=== PATIENT | female | born 1945 | race Caucasian/White ===

== ENCOUNTER 2018-07-08 07:26 | Day surgery (SDC) | payer MEDICARE, BC ==
--- NOTE | 2018-06-05 15:55 | HP ---
PREOPERATIVE HISTORY AND PHYSICAL: DATE OF ADMISSION: 06/24/2018. CHIEF COMPLAINT: Numbness and tingling in the left hand. HISTORY OF PRESENT ILLNESS: Vani is a 73-year-old woman who complains of bilateral numbness and tingling in her hands for 7 years on and off. More recently, it has become increasingly bothersome and is worse on the left hand than the right. She has had difficulty doing activities such as gardening and knitting. She has had an increase in her symptoms recently after doing a lot of loading of firewood for the winter. She has had cortisone injections into her carpal tunnels, which were helpful but now have worn off and she presents now for left carpal tunnel release. PAST MEDICAL HISTORY: 1. Sleep apnea. 2. Asthma. 3. Hypercholesterolemia. 4. Mitral valve disorder for which she has recently seen her bread wrapper operator. 5. Primary cardiomyopathy. PAST SURGICAL HISTORY: 1. Cholecystectomy. 2. Radiofrequency ablation for SVT. 3. Laminectomy. 4. Tubal ligation. 5. Tonsillectomy. MEDICATIONS: 1. Entresto 24/26 mg 1 p.o. b.i.d. 2. Magnesium 300 mg OTC p.o. daily. 3. Levothyroxine sodium 100 mcg p.o. daily. 4. Ezetimibe 10 mg p.o. daily. 5. Modafinil 100 mg p.o. q.a.m. p.r.n. 6. Calcium 600 mg p.o. daily. 7. Vitamin D 2 drops daily. 8. Carvedilol 6.25 mg half a tablet p.o. b.i.d. 9. Alvesco 160 mcg per ACT 2 inhalations twice a day. 10. CPAP for use while sleeping. 11. ProAir HFA 108 mcg 2 puffs q.4 hours p.r.n. The patient rarely uses this. 12. Biotin 5 mg p.o. daily. ALLERGIES: To SULFA, LIPITOR, SEASONAL ALLERGIES, CIPRO, and AUGMENTIN. FAMILY HISTORY: Noncontributory. SOCIAL HISTORY: She lives with her . 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 The patient denies tobacco use. Rarely consumes alcohol. Does not use recreational drugs. REVIEW OF SYSTEMS: Positive for cough, history of fracture as a child, slight weight loss and seasonal allergies. Otherwise, negative for cephalic, cardiovascular, respiratory, gastrointestinal, genitourinary, other musculoskeletal, skin, neurologic, endocrine, and hematologic symptoms. PHYSICAL EXAMINATION GENERAL: She is a healthy-appearing very pleasant female, in minimal distress, at rest. HEENT: Unremarkable. NECK: She has good range of motion of her neck without pain. No masses are palpated. LUNGS: Clear to auscultation. Good inspiratory effort. No wheezing. CARDIAC: Regular rate and rhythm without murmur. PERIPHERAL VASCULAR: She has palpable pulses and no peripheral edema. NEUROLOGICAL: She is alert and oriented without focal deficit. EXTREMITIES: She has decreased sensation in the median nerve distribution of her left hand. Some mild thenar wasting and positive median nerve compression test. IMPRESSION: Left carpal tunnel syndrome. PLAN: Left carpal tunnel release. Surgical procedure, risks and benefits were explained to the patient today and she agrees to proceed. We will see her back in followup for recheck approximately 10 days postop. [id number]/[facility] #: [id number] KINDRA
[~2018-07-08 07:26] MED LIST: Buffered Lidocaine 0.9% SYRIN* 5 ML/SYR SYRINGE INTRADERM ONE; Famotidine IV* 10 MG/ML 2 ML (20 mg) IV ONE; Lidocaine 1% INJ* 10 MG/ML 30 ML SDV ONE
[2018-07-08] MEDS ORDERED: Midazolam* 1 MG/ML 5 ML VIAL (5 MG) ONE (08:55)
[2018-07-08] MEDS ORDERED: fentaNYL* 50 MCG/ML 2 ML VIAL (100 MCG VIAL) ONE (08:55)
[2018-07-08] MEDS ORDERED: Ondansetron INJ* 2 MG/ML VIAL ONE (09:30)
[2018-07-08] MEDS ORDERED: Ketorolac INJ* 30 MG/ML 1 ML VIAL ONE (09:30)
[2018-07-08] MEDS ORDERED: Lidocaine 2% PF * 5 ML VIAL ONE (09:30)
[2018-07-08] MEDS ORDERED: Propofol* 10 MG/ML 20 ML BTL ONE (09:30)
[2018-07-08 09:59] VITALS: BP 106/59
[2018-07-08] MEDS ORDERED: Acetaminophen TAB* 325 MG PO PRN (10:01)
--- NOTE | 2018-07-09 08:37 | OP ---
DATE OF OPERATION: 07/08/[address] [facility] DATE OF : 47. SURGEON: Lamar Calderón MD. FORECLOSURE SPECIALIST: FRANCIS Matthews. ANESTHESIA: Local MAC. PRE-OP DIAGNOSIS: Left carpal tunnel syndrome. POST-OP DIAGNOSIS: Left carpal tunnel syndrome. OPERATIVE PROCEDURE: Left carpal tunnel release. ESTIMATED BLOOD LOSS: Zero. TOURNIQUET TIME: About 10 minutes. INDICATION FOR PROCEDURE: Vani is a 73-year-old woman with numbness and tingling in the median nerve distribution of her left hand. She presents for left carpal tunnel release. DESCRIPTION OF PROCEDURE: The patient was brought to the operating room and was given a sedation anesthetic and a local infiltration of 10 cc of 1% plain lidocaine in the palm of her left hand. The skin of her left hand and forearm was prepped and draped in the usual sterile fashion. The hand and forearm were exsanguinated and the tourniquet elevated to 250 mmHg. A longitudinal incision was made in the palm in line with the ring finger. We dissected through the subcutaneous tissue down to the transverse carpal ligament. The ligament was divided sharply with a knife and then more proximally with the scissors. The nerve was dissected free from the surrounding tissue and there was an area of moderate compression in the mid portion of the ligament. The wound was irrigated and skin edges were reapproximated with 4-0 nylon suture. The wound was dressed with Xeroform, 4x4, Webril, and an Fracisco wrap. The patient tolerated the procedure well and was brought to the recovery room in good condition. [id number]/[facility] #: [id number] [facility]
== END 2018-07-08 10:21 | disposition home or self-care (01) ==
LOC: OREAST 07:26
PROVIDERS: ATTEND Orthopaedic Surgery
DX: G56.02 Carpal tunnel syndrome, left upper limb (principal); I44.7 Left bundle-branch block, unspecified; G47.33 Obstructive sleep apnea (adult) (pediatric); E78.5 Hyperlipidemia, unspecified; I42.9 Cardiomyopathy, unspecified; I34.0 Nonrheumatic mitral (valve) insufficiency
CPT/HCPCS: J1885; J2250; J2405; J2704; J3010

== ENCOUNTER 2018-08-29 09:26 | Day surgery (SDC) | payer MEDICARE, BC ==
--- NOTE | 2018-08-18 10:46 | HP ---
CC: Dr. Calderón PREOPERATIVE HISTORY AND PHYSICAL: DATE OF ADMISSION: CHIEF COMPLAINT: Right hand numbness and tingling. HISTORY OF PRESENT ILLNESS: Vani is a 73-year-old female who complains of numbness and tingling in her right hand. She recently had a left carpal tunnel release with very good result and presents now for the same on the right. PAST MEDICAL HISTORY: Sleep apnea, asthma, hypercholesterolemia, mitral valve disorder, treated by h layout former and primary cardiomyopathy. PAST SURGICAL HISTORY: Cholecystectomy, radiofrequency ablation for SVT, laminectomy, tubal ligation , tonsillectomy, and left carpal tunnel release. MEDICATIONS: 1. Entresto 24/26 mg 1 p.o. b.i.d. 2. Magnesium 300 mg OTC p.o. daily. 3. Levothyroxine sodium 100 mcg p.o. daily. 4. Ezetimibe 10 mg p.o. daily. 5. Modafinil 100 mg p.o. q.a.m. p.r.n. 6. Calcium 600 mg p.o. daily. 7. Vitamin D 2 drops daily. 8. Carvedilol 6.25 mg half a tablet p.o. b.i.d. 9. Alvesco 160 mcg per ACT 2 inhalations twice a day. 10. CPAP for use while sleeping. 11. ProAir HFA 108 mcg 2 puffs q.4 hours p.r.n. The patient rarely uses this. 12. Biotin 5 mg p.o. daily. ALLERGIES: SULFA, LIPITOR, SEASONAL ALLERGIES, CIPRO and AUGMENTIN. FAMILY HISTORY: Noncontributory. SOCIAL HISTORY: She lives with her . 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 She denies tobacco use. Rarely consumes alcohol and does not use recreational drugs. REVIEW OF SYSTEMS: Positive for cough, history of fracture as a child, slight weight loss, seasonal allergies. Otherwise, negative for cephalic, cardiovascular, respiratory, gastrointestinal, genitour inary, other musculoskeletal, skin, neurologic, endocrine and hematologic symptoms. PHYSICAL EXAMINATION GENERAL: She is a healthy-appearing very pleasant female in minimal distress at rest. HEENT: Unremarkable. NECK: She has good range of motion of her neck without pain. No masses are palpated. LUNGS: Clear to auscultation. Good inspiratory effort. No wheezing. CARDIAC: Regular rate and rhythm without murmur. PERIPHERAL VASCULAR: She has palpable pulses and no peripheral edema. NEUROLOGICAL: She is alert and oriented without focal deficit. EXTREMITIES: She has decreased sensation in the median nerve distribution of the right hand. She graves s mild thenar wasting and positive median nerve compression test. She can fully flex and extend her fingers and her wrist motion is good. IMPRESSION: Right carpal tunnel syndrome. PLAN/RECOMMENDATIONS: The plan is for right carpal tunnel release. The surgical procedure, risks an d benefits were explained to the patient and she agreed to proceed. I will see her back in followup approximately 10 days postop. [id number]/[facility] #: [id number]
[~2018-08-29 09:26] MED LIST changes: -Buffered Lidocaine 0.9% SYRIN* 5 ML/SYR SYRINGE INTRADERM ONE; +Buffered Lidocaine 1% SYRIN* 1 ML/SYRINGE INTRADERM ONE; -Famotidine IV* 10 MG/ML 2 ML (20 mg) IV ONE; +Lactated Ringers 1000 ML Bag* 1,000 ML IV SCH; -Lidocaine 1% INJ* 10 MG/ML 30 ML SDV ONE
[2018-08-29] MEDS ORDERED: Lidocaine 1% INJ* 10 MG/ML 30 ML SDV ONE (10:07)
[2018-08-29] MEDS ORDERED: Propofol* 10 MG/ML 20 ML BTL ONE (10:16)
[2018-08-29] MEDS ORDERED: fentaNYL* 50 MCG/ML 2 ML VIAL (100 MCG VIAL) ONE (10:16)
[2018-08-29] MEDS ORDERED: Lidocaine 2% PF * 5 ML VIAL ONE (10:16)
[2018-08-29 10:46] VITALS: BP 116/60
--- NOTE | 2018-08-29 20:34 | OP ---
DATE OF OPERATION: 08/29/18 LOCATED WITHIN [facility] DATE OF : 47 SURGEON: Lamar Calderón MD COSTING ANALYST: FRANCIS Matthews ANESTHESIA: Local MAC. PRE-OP DIAGNOSIS: Right carpal tunnel syndrome. POST-OP DIAGNOSIS: Right carpal tunnel syndrome. OPERATIVE PROCEDURE: Right carpal tunnel release. INDICATIONS FOR PROCEDURE: Vani is a 73-year-old female with numbness and tingling in the median nerve distribution of her right hand. She presents for right carpal tunnel release. ESTIMATED BLOOD LOSS: Zero. TOURNIQUET TIME: About 5 minutes. DESCRIPTION OF PROCEDURE: The patient was brought to the operating room, was given a sedation anesthetic and a local infiltration of 10 cc of 1% plain lidocaine in the palm of her right hand. The skin of her right hand and forearm was prepped and draped in the usual sterile fashion. The hand and forearm were exsanguinated and the tourniquet elevated to 250 mmHg. A longitudinal incision was made in the palm in line with the ring finger. We dissected through the subcutaneous tissue down to the transverse carpal ligament. The ligament was divided sharply with a knife and then more proximally with the scissors. The nerve was dissected free from the surrounding tissue and there was an area of moderate compression at the mid portion of the ligament. The wound was irrigated and the skin edges were reapproximated with 4-0 nylon suture. The wound was dressed with Xeroform, 4x4 , Webril, and an Fracisco wrap. The patient tolerated the procedure well and was brought to the recovery room in good condition. [id number]/[facility] #: [id number] [facility]
== END 2018-08-29 11:09 | disposition home or self-care (01) ==
LOC: OREAST 09:26
PROVIDERS: ATTEND Orthopaedic Surgery
DX: G56.01 Carpal tunnel syndrome, right upper limb (principal); G47.33 Obstructive sleep apnea (adult) (pediatric); J45.909 Unspecified asthma, uncomplicated; E78.00 Pure hypercholesterolemia, unspecified; I34.8 Other nonrheumatic mitral valve disorders; E03.9 Hypothyroidism, unspecified; Z85.79 Personal history of other malignant neoplasms of lymphoid, hematopoietic and related tissues
CPT/HCPCS: J2704; J3010

== ENCOUNTER 2018-11-11 03:30 | Observation (INO) | payer MEDICARE, BC ==
--- NOTE | 2018-11-11 03:54 | ED ---
HPI Chest Pain - HPI Summary HPI Summary: Pt is a 73 y/o F presenting to the ED brought in by EMS for chest pain onset around 1800 in her mid-sternal area. She reports associated dry mouth, nausea, and headache. She denies vomiting. She has hx of heart problems, including CHF, leaky mitral valve, cardiac ablation 20 yrs ago for SVT, and cardiac MRI in April due to varying cardiac function. She denies hx of NV or cardiac stent. She was given 324 ASA and 1 ntg from EMS. - History of Current Complaint Chief Complaint: EDChestPainROMI Time Seen by Provider: 11/11/18 03:38 Hx Obtained From: Patient Onset/Duration: Started Hours Ago, Still Present Timing: Constant, Lasting Hours Initial Severity: Moderate Current Severity: Moderate Pain Intensity: 4 Pain Scale Used: 0-10 Numeric Chest Pain Location: Mid Sternal Chest Pain Radiates: No Aggravating Factor(s): Nothing Alleviating Factor(s): Nothing Associated Signs and Symptoms: Positive: Chest Pain, Headaches, Nausea, Other: - dry mouth. Negative: Vomiting - Allergy/Home Medications Allergies/Adverse Reactions: Allergies Allergy/AdvReac Type Severity Reaction Status Date / Time amoxicillin [From Augmentin] Allergy STOMACH Verified 08/29/18 09:41 PAIN atorvastatin [From Lipitor] Allergy Muscle Ache Verified 08/29/18 09:41 ciprofloxacin [From Cipro] Allergy KIDNEY Verified 08/29/18 09:41 FUNCTION clavulanic acid Allergy STOMACH Verified 08/29/18 09:41 [From Augmentin] PAIN Sulfa (Sulfonamide Allergy Rash And Verified 11/11/18 05:32 Antibiotics) Itching SEASONAL ALLERGIES Allergy Runny Nose Uncoded 08/29/18 09:41 PMH/Surg Hx/FS Hx/Imm Hx Previously Healthy: No Endocrine/Hematology History: Reports: Hx Thyroid Disease - "NON FUNCTIONING THYROID", Hx Anemia - childhood Cardiovascular History: Reports: Hx Hypertension, Hx Valvular Heart Disease - MITRAL VALVE LEAK, Other Cardiovascular Problems/Disorders - Supraventricular TachyABLATION-20 YRS A//LEFT BUNDLE BRACH BLOCK-DR. HAMLIN Denies: Hx Pacemaker/ICD Respiratory History: Reports: Hx Asthma - ROUTINE AND PRN INHALER, Hx Sleep Apnea - current CPAP user GI History: Reports: Other GI Disorders - ABDOMINAL PAIN History: Reports: Hx Acute Renal Failure - Current Dx, Hx Renal Disease - TOLD BY THAT THE RENAL FUNCTION IS OFF Denies: Other Problems/Disorders Musculoskeletal History: Reports: Hx Arthritis - HANDS, Hx Scoliosis Denies: Hx Osteoporosis, Other Musculoskeletal History Sensory History: Reports: Hx Contacts or Glasses - GLASSES Denies: Hx Hearing Aid Opthamlomology History: Reports: Hx Contacts or Glasses - GLASSES Neurological History: Reports: Hx Headaches Denies: Other Neuro Impairments/Disorders Psychiatric History: Denies: Hx Panic Disorder - Cancer History Hx Chemotherapy: No Hx Radiation Therapy: No - Surgical History Surgery Procedure, Year, and Place: Post Ablation (Cardiac)-1997. 1983- LAMINECTOMY, [facility], [facility]. TUBAL LIGATION,1976. TONSILLECTOMY, age 6. left carpal tunnel 07/08/18 Hx Anesthesia Reactions: No Infectious Disease History: No Infectious Disease History: Denies: Traveled Outside the [place] in Last 30 Days - Family History Known Family History: Positive: Cardiac Disease - sister has had stents placed, Renal Disease - father of renal failure - Social History Occupation: Retired Lives: With Family Alcohol Use: Rare Alcohol Amount: 1 per month Hx Substance Use: No Substance Use Type: Reports: None Hx Tobacco Use: No Smoking Status (MU): Never Smoked Tobacco Have You Smoked in the Last Year: No Review of Systems Positive: Other - dry mouth Positive: Chest Pain Positive: Nausea. Negative: Vomiting Positive: Headache All Other Systems Reviewed And Are Negative: Yes Physical Exam - Summary Physical Exam Summary: VITAL SIGNS: Reviewed. GENERAL: Patient is a well-developed and nourished female who is lying comfortable in the stretcher. Patient is not in any acute respiratory distress. HEAD AND FACE: No signs of trauma. No ecchymosis, hematomas or skull depressions. No sinus tenderness. EYES: PERRLA, EOMI x 2, No injected conjunctiva, no nystagmus. EARS: Hearing grossly intact. Ear canals and tympanic membranes are within normal limits. MOUTH: Oropharynx within normal limits. NECK: Supple, trachea is midline, no adenopathy, no JVD, no carotid bruit, no c- spine tenderness, neck with full ROM. CHEST: Symmetric, no tenderness at palpation LUNGS: Clear to auscultation bilaterally. No wheezing or crackles. CVS: Regular rate and rhythm, S1 and S2 present, no murmurs or gallops appreciated. ABDOMEN: Soft, non-tender. No signs of distention. No rebound no guarding, and no masses palpated. Bowel sounds are normal. EXTREMITIES: FROM in all major joints, no edema, no cyanosis or clubbing. NEURO: Alert and oriented x 3. No acute neurological deficits. Speech is normal and follows commands. SKIN: Dry and warm Triage Information Reviewed: Yes Vital Signs On Initial Exam: Initial Vitals Temp Pulse Resp BP Pulse Ox 99.8 F 79 16 104/59 94 11/11/18 03:31 11/11/18 03:31 11/11/18 03:31 11/11/18 03:31 11/11/18 03:31 Vital Signs Reviewed: Yes Diagnostics - Vital Signs Vital Signs Temp Pulse Resp BP Pulse Ox 11/11/18 03:31 99.8 F 79 16 104/59 94 - Laboratory Result Diagrams: 11/11/18 04:11 11/11/18 04:11 Lab Statement: Any lab studies that have been ordered have been reviewed, and results considered in the medical decision making process. - Radiology CXR Radiology Interpretation Completed By: ED Physician Summary of Radiographic Findings: Mild bilateral venous congestion. Pending official radiology report. - EKG 0410 Cardiac Rate: NL - 74bpm EKG Rhythm: Sinus Rhythm ST Segment: Normal Ectopy: None Summary of EKG Findings: Old LBBB. Re-Evaluation - Re-Evaluation 1st re-eval Re-Evaluation Time: 04:15 Change: Improved Comment: The pt reports that her chest pain has resolved but her headache has not gone away. Chest Pain Course/Dx - Course Course Of Treatment: Pt is a 73 y/o F presenting to the ED brought in by EMS for chest pain onset around 1800 in her mid-sternal area. She reports associated dry mouth, nausea, and headache. She denies vomiting. She has hx of heart problems, including CHF, leaky mitral valve, cardiac ablation 20 yrs ago for SVT, and cardiac MRI in April due to varying cardiac function. An EKG at 0410 shows NSR at 73bpm with an old LBBB. CXR shows mild bilateral venous congestion, pending official radiology report. The pt's troponin is 0.02. As of 443, the pt will be admitted to [facility] under Dr. Masters with a dx of chest pain. Discharge - Sign-Out/Discharge Documenting (check all that apply): Patient Departure - Discharge Plan Condition: Stable Disposition: ADMITTED TO [facility] - Billing Disposition and Condition Condition: STABLE Disposition: Admitted to [facility] - Attestation Statements Document Initiated by Kristian: Yes Documenting Scribe: Anette Lundy Provider For Whom Kristian is Documenting (Include Credential): Xena Oconnor MD. Scribe Attestation: Anette Crocker, scribed for Xena Oconnor MD. on 11/11/18 at 0624. Scribe Documentation Reviewed: Yes Provider Attestation: The documentation as recorded by the Anette norris accurately reflects the service I personally performed and the decisions made by , Xena Oconnor MD. Status of Scribe Document: Viewed Consult Consult: [id number] - Spoke with Dr. Masters who will be accepting the pt to [facility] with a dx of chest pain.
[2018-11-11] MEDS ORDERED: Al Hydrox/Mg Hydrox/Simet LIQ* 30 ML UDC PO ONE (03:57)
[2018-11-11] MEDS ORDERED: Lidocaine 2% VISCOUS* 15 ML UDC PO ONE (03:57)
[2018-11-11] MEDS ORDERED: Ondansetron INJ* 2 MG/ML VIAL IV ONE (03:57)
[2018-11-11] MEDS ORDERED: Pantoprazole IV* 40 MG IV ONE (03:57)
[2018-11-11 04:20] LABS: ABS Basophils 0 10^3/ul (0-0.2); ABS Eosinophils 0.1 10^3/ul (0-0.6); ABS Lymphocytes 0.3 10^3/ul (1.0-4.8); ABS Monocytes 0.3 10^3/ul (0-0.8); ABS Neutrophils 2.6 10^3/ul (1.5-7.7); ABS Nucleated RBC 0 10^3/ul; Eosinophil % 3.8 %; Hematocrit 36 % (33-41); Hemoglobin 12.4 g/dL (12.0-16.0); Lymphocyte % 9.6 %; Mean Corpuscular HGB Conc 34 g/dL (31-36); Mean Corpuscular Hemoglobin 32 pg (27-31); Mean Corpuscular Volume 95 fL (80-97); Mean Platelet Volume 6.3 fL (7.4-10.4); Nucleated Red Blood Cells % 0.1; Platelet Count 312 10^3/uL (150-450); Red Blood Count 3.85 10^6 /uL (3.70-4.87); Red Cell Distribution Width 14 % (10.5-15); White Blood Count 3.4 10^3/uL (3.5-10.8)
[2018-11-11 04:27] LABS: Activated Partial Thrombo Time 30.7 seconds (26.0-36.3); INR 0.93 (0.77-1.02)
[2018-11-11 04:36] LABS: Albumin 3.9 g/dL (3.2-5.2); Albumin/Globulin Ratio 1.4 (1-3); BUN/Creatinine Ratio 28.6 (8-20); Calcium 8.7 mg/dL (8.6-10.3); EGFR African American 99.5 (>60); EGFR Non-African American 82.3 (>60); Globulin 2.7 g/dL (2-4); Potassium 3.6 mmol/L (3.5-5.0); Total Protein 6.6 g/dL (6.4-8.9)
[2018-11-11 04:39] LABS: Troponin I 0.02 ng/mL (<0.04)
[2018-11-11] MEDS ORDERED: Ketorolac INJ* 30 MG/ML 1 ML VIAL IV PUSH ONE (04:46)
[2018-11-11] MEDS ORDERED: Acetaminophen TAB* 325 MG PO PRN (05:12)
[2018-11-11] MEDS ORDERED: Magnesium Hydroxide LIQ* 30 ML UDC PO PRN (05:12)
[2018-11-11] MEDS ORDERED: Ondansetron INJ* 2 MG/ML VIAL IV PRN (05:12)
[2018-11-11] MEDS ORDERED: Morphine 4 MG/ML VIAL (1 ml) 4 MG/ML VIAL IV PRN (05:12)
[2018-11-11] MEDS ORDERED: Albuterol HFA INHALER* 8 gm MDI INH PRN (05:15)
[2018-11-11] MEDS ORDERED: NS 0.9% 1000 ML** 1,000 ML IV SCH (05:15)
[2018-11-11] MEDS ORDERED: Levothyroxine TAB* 100 MCG TAB PO SCH (06:00)
[2018-11-11] MEDS ORDERED: CICLESONIDE INH SCH (09:00)
[2018-11-11] MEDS ORDERED: Carvedilol TAB* 3.125 MG PO SCH (09:00)
[2018-11-11] MEDS ORDERED: Sacubitril/Valsartan 24/26(NF) 1 TAB PO SCH (09:00)
[2018-11-11 09:11] VITALS: BP 95/34
[2018-11-11 10:02] LABS: HDL Cholesterol 44.7 mg/dL
--- NOTE | 2018-11-11 10:04 | HP ---
CC: Trena Palmer MD; Ayan Encarnacion MD* HISTORY AND PHYSICAL: DATE OF ADMISSION: 11/11/18 TIME OF EVALUATION: 0500 PRIMARY CARE PHYSICIAN: Trena Palmer MD BRYOLOGIST: Ayan Encarnacion MD CHIEF COMPLAINT: Epigastric pain. HISTORY OF PRESENT ILLNESS: This is a 73-year-old female with past medical history of nonischemic cardiomyopathy with eyicpqul-cy-ncpvvi MR, who presents to the emergency room with epigastric pain. The patient states she was in her usual state of health yesterday. She loaded, unloaded wood from her neighbor's basement. She states she is very active and is in charge of doing all the wood at her house, states they do have a wood stove. This wood was particularly heavier than it normally is. Around 6 p.m., she developed a headache on the top of her head with some epigastric discomfort. She did not eat any dinner, she went to lie down around 6 p.m. She had slept on and off and woke around midnight with the pain persisting and then 2 a.m., she got worried that there may be something going on with her heart, so she called EMS. They subsequently gave her an aspirin, nitro, and her pain has since resolved. When the EMS arrived, she did feel diaphoretic and nauseated. No associated shortness of breath. She denies any recent URI illness. No coughing, no congestion, nothing out of the ordinary regarding her diet. No increase in burping or indigestion. She did state she just returned from [place] for a 2 days ago where she drove there, but she states she did stop frequently to get out regarding her headache. No vision changes, no photophobia. Otherwise, review of systems negative. In the emergency room, the patient had labs, imaging. She was given Protonix 40 mg IV, Zofran 8 mg, viscous lidocaine, Toradol, and Maalox, and referred to the hospitalist service for further evaluation. PAST MEDICAL HISTORY: 1. Nonischemic cardiomyopathy, followed by Dr. Encarnacion, had several stress test and cardiac workup including a cardiac MRI in the past 6 months. 2. Hohxnzjx-kz-ihpeat mitral regurgitation. 3. Hypothyroidism. 4. History of asthma. 5. Hyperlipidemia. 6. History of laminectomy. 7. History of sleep disorder. MEDICATIONS: 1. Calcium carbonate/vitamin D3 1 tab daily. 2. Albuterol inhaler 2 puffs every 4 hours as needed. 3. Magnesium citrate 100 mg p.o. daily. 4. Vitamin D 2 to 3 drops daily in the morning. 5. 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 6. Entresto 24-26 1 tab p.o. b.i.d. 7. Synthroid 100 mcg p.o. daily. 8. Zetia 10 mg daily. 9. Alvesco 1 puff inhaler in the morning. 10. Coreg 3.125 mg p.o. b.i.d. ALLERGIES: AMOXICILLIN, ATORVASTATIN, CIPROFLOXACIN, CLAVULANIC ACID, SEASONAL ALLERGIES, SULFA DRUGS. FAMILY HISTORY: Reviewed and noncontributory. SOCIAL HISTORY: The patient lives at home with her , who is her healthcare proxy. She states she is very active, doing a lot of heavy lifting of wood for her wood stove. 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 No history of tobacco or illicit drug use. Rare alcohol use. Code status is full code. REVIEW OF SYSTEMS: A 14-point review of systems reviewed and as mentioned in the HPI, otherwise negative. PHYSICAL EXAMINATION GENERAL: No acute distress, resting comfortably. VITAL SIGNS: T-max 99.8, pulse rate is 79, respiratory rate is 14, oxygen saturation 94% on room air, blood pressure 104/59. HEENT: Head: Normocephalic. Pupils equal and reactive, anicteric. Oropharynx : Mucous membranes moist. NECK: Supple. No lymphadenopathy. RESPIRATORY: Diminished breath sounds. No wheezes, rhonchi, or rales. CARDIAC: Regular rate and rhythm. Subtle murmur heard throughout. ABDOMEN: Soft, nontender, nondistended. EXTREMITIES: Trace pretibial edema. No clubbing, cyanosis. +1 DP. NEUROLOGICAL: Alert and oriented x3. No gross focal neurological deficits. LABORATORY DATA: White count 3.4, hemoglobin 12.4, hematocrit 36, platelets 312,000. INR is 0.93. Sodium 137, potassium 3.6, chloride 106, bicarb 25, BUN 20, creatinine 0.7, glucose 119, AST is 46, ALT is 37, mag is 2, troponin is 0.02, BNP is 49. RADIOGRAPHIC DATA: Some prominent markings diffusely. EKG shows a left bundle - branch block, which is unchanged. ASSESSMENT: This is a 73-year-old female with past medical history of nonischemic cardiomyopathy, rubkfhzz-xk-ijxsaf mitral regurgitation, epigastric pain, and headache. 1. Epigastric pain and headache. Assessment: It is unclear the etiology. Despite her cardiac history, I do not think this is acute coronary syndrome or coronary disease. It could potentially be a pulmonary embolism with the setting of a recent long drive to [place] a few days ago. The other possibility is she had a low-grade temp and she is leukopenic that this is some sort of a viral illness beginning. The other possibility is the tick borne disease. She is outside frequently. Plan: We will admit her to [address] [place] [address]. Continue to trend her troponin. Would touch base with Cardiology to determine how recent all her cardiac studies were. If her D-dimer is elevated, we will check a CTA of the chest to rule out a pulmonary embolism. Her BNP has ruled out congestive heart failure. I am going to check a Lyme and tick borne panel for her. If she spikes a temp, I would consider treating her with doxy while awaiting results. 2. Chronic medical problems. We will resume her home medications. 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 3. FEN. We will allow for a regular diet. We will keep her n.p.o. for now in anticipation of possibly going for a stress test, but it appears that she had one recently. Keep her n.p.o. until touching base with Cardiology. 4. DVT prophylaxis. The patient scores moderate risk. Place her on heparin subcu t.i.d. 5. Code status. Full code. TIME SPENT: Greater than 35 minutes were spent doing the history and physical, more than half of the time was spent in direct patient contact. [id number]/[facility] #: [id number] KINDRA
[2018-11-11] MEDS ORDERED: Regadenoson* 0.4 MG/5 ML SYRINGE ONE (12:18)
[2018-11-11] MEDS ORDERED: Aminophylline IV* 25 MG/ML 10 ML VIAL ONE (12:18)
[2018-11-11] MEDS ORDERED: Heparin VIAL(*) 5000 UNITS/ML VIAL (FIVE THOUSAND) SUBCUT SCH (14:00)
[2018-11-11 16:03] LABS: Influenza A Molecular NEGATIVE (Negative); Influenza B Molecular NEGATIVE (Negative)
[2018-11-11] MEDS ORDERED: Al Hydrox/Mg Hydrox/Simet LIQ* 30 ML UDC PO PRN (16:15)
[2018-11-11] MEDS ORDERED: Ezetimibe TAB* 10 MG PO SCH (21:00)
--- NOTE | 2018-11-12 02:39 | DS ---
CC: Dr. Trena Palmer; Dr. Ayan Encarnacion * DISCHARGE SUMMARY: DATE OF ADMISSION: 11/11/18 DATE OF DISCHARGE: 11/11/18 PRIMARY CARE PROVIDER: Dr. Trena Palmer FOAM TANK LAMINATOR: Dr. Ayan Encarnacion ATTENDING PHYSICIAN: Dr. Merari Wing * (dictated by Maryam Briggs NP) PRIMARY DIAGNOSES: 1. Chest pain, noncardiac. 2. Likely viral illness. SECONDARY DIAGNOSES: 1. Nonischemic cardiomyopathy. 2. Cjhahrol-la-jnfism mitral regurgitation. 3. Hyperlipidemia. STUDIES WHILE IN THE HOSPITAL: 1. Chest x-ray on 11/11/18 reads as right basilar atelectasis. No definite pneumonia is noted. 2. EKG on 11/11/18 shows normal sinus rhythm with the rate of 73, QTc 485, left bundle-branch block, no ischemic changes. 3. EKG on 11/11/18 shows normal sinus rhythm with the rate of 52, QTc 457, left bundle-branch block, no ischemic changes. 4. Nuclear stress test done on 11/11/18 reads as a small area of reversible change in the anteroseptal wall with normal ejection fraction. No wall motion abnormalities identified. Assessment is low risk. HISTORY OF PRESENT ILLNESS AND HOSPITAL COURSE: Ms. Morgan is a 73-year- old female with past medical history of nonischemic cardiomyopathy with moderate -to-severe mitral regurgitation, hyperlipidemia, and hypothyroidism, who presented to the emergency room on 11/11/18 with complaints of epigastric pain. Please see the history and physical by Dr. Masters for complete summary of the events leading up to this hospitalization. In short, the patient was moving pieces of wood earlier in the day and around 6 p.m. developed a headache and some epigastric discomfort. The pain persisted and she was concerned and presented to the emergency room, where she was given aspirin and nitro. Her pain resolved. She did endorse diaphoresis and nausea, but no shortness of breath. In the emergency room, she had imaging as noted above. She was noted to have a negative troponin of 0.02. She was admitted by the hospitalist service because of her chest pain and notable cardiac history. The patient had 2 additional troponins and another EKG. Both additional troponins were 0.00 and her EKG showed no changes. She did have a BNP of 49 and also had a lipid panel which showed good control with total cholesterol of 148 and LDL of 92. Vital signs remained stable and she had no further epigastric pain. She did continue to note a mild dull headache. Because of this a Lyme serology was done and it was noted to be negative. It was unclear when the patient's last stress test was and so initially the patient was not scheduled for a stress test. I did speak with [facility] today and obtained results from a stress test from [place] from February 2018 and that was her most recent stress test. Because of this I felt it was reasonable to repeat a stress test. The patient's stress test results are noted above and she was noted to be low risk. I discussed these results with the patient, she does continue to endorse a mild dull headache and occasional abdominal discomfort, though she describes this more as nausea. She has no other associated symptoms, though there was some concern for flu, so a flu swab was done and that was negative. Vital signs have remained stable. I do think her symptoms of headache and GI discomfort may represent a viral illness, though she does not require any inpatient treatment at this point. On exam, she has a regular rate and rhythm. There is a murmur noted. Lung sounds are clear and she has no abdominal tenderness on palpation. There are no neurological deficits and assessment is otherwise benign. Ms. Morgan is stable for discharge today. Vital signs are as follows: Temperature 99.0, heart rate 71, respiratory rate 19, oxygen saturation 97% on room air. Blood pressure 95/34. DISCHARGE MEDICATIONS: New medications: 1. Ondansetron 4 mg p.o. q.6 hours p.r.n. nausea, vomiting. 2. Maalox 30 mL p.o. q.4 hours p.r.n. indigestion. Continued medications: 1. Albuterol MDI 2 puffs every 4 hours p.r.n. shortness of breath, wheezing. 2. Calcium 500 plus vitamin D 1 tab p.o. daily. 3. Carvedilol 3.125 mg p.o. b.i.d. 4. Cholecalciferol 2000 units p.o. daily. 5. Alvesco 6.1 g 1 puff daily. 6. Zetia 10 mg p.o. at bedtime. 7. Levothyroxine 100 mcg p.o. daily. 8. Magnesium citrate 100 mg p.o. daily. 9. Modafinil 100 mg p.o. daily p.r.n. 10. Entresto 24-26 mg 1 tab p.o. b.i.d. DISCHARGE PLAN: Ms. Morgan will be discharged to discharged home. Activity will be as tolerated. Diet should be heart healthy. Medications are noted above. I have prescribed the patient some Zofran for nausea and I have instructed her that she may take [id number] Maalox to help with her indigestion from a presumed viral illness. She can continue her other usual medications and I have not made any further changes. 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 She should follow up with her primary care provider in 4 to 7 days. She has been instructed to return to the emergency room or nearest hospital for any worsening of symptoms, shortness of breath, lightheadedness, dizziness, chest discomfort, high fever, chills, night sweats, loss of consciousness, or any other worrisome signs or symptoms. DISCHARGE CONDITION: Stable. DISCHARGE DISPOSITION: Home. This is a summarized report of a complex medical history and hospital stay. For further details, please see the entire medical record. TIME SPENT: Approximately 40 minutes was spent on this discharge. MARYAM BRIGGS NP [id number]/[facility] #: [id number] KINDRA
[2018-11-13 17:43] LABS: Anaplasma phagocytophilum Negative (Negative); B. miyamotoi PCR, B Negative (Negative); Babesia divergens/MO-1 Negative (Negative); Babesia ducani Negative (Negative); Ehrlichia chaffeensis Negative (Negative); Ehrlichia ewingii/canis Negative (Negative); Ehrlichia muris eauclairensis Negative (Negative)
== END 2018-11-11 17:26 | disposition home or self-care (01) ==
LOC: ED 03:30 → MEDTELE 05:12
PROVIDERS: ADMIT Pediatrics; ATTEND Internal Medicine
DX: R07.9 Chest pain, unspecified (principal); I42.9 Cardiomyopathy, unspecified; I34.0 Nonrheumatic mitral (valve) insufficiency; I44.7 Left bundle-branch block, unspecified; E78.5 Hyperlipidemia, unspecified; Z88.2 Allergy status to sulfonamides; Z88.0 Allergy status to penicillin; E03.9 Hypothyroidism, unspecified; J45.909 Unspecified asthma, uncomplicated; Z90.89 Acquired absence of other organs; R10.13 Epigastric pain; J98.11 Atelectasis
CPT/HCPCS: 36415; 71045; 78452; 80053; 80061; 83735; 83880; 84484; 85025; 85379; 85610; 85730; 86618; 87798; 93005; 93017; 96374; 96375; 96376; 99285; A9270-GY; A9502; G0378; J0280; J1885; J2405; J2785